=== PATIENT | female | born 1985 | race Caucasian/White ===

== ENCOUNTER 2019-11-27 23:32 | Emergency (ER) | payer MEDICAID ==
[~2019-11-27] VITALS: Ht 167.6 cm; Wt 68.0 kg
[2019-11-28] MEDS ORDERED: ACETAMINOPHEN WITH CODEINE 300/30MG TABLET PO ONE
[2019-11-28] MEDS ORDERED: SODIUM CHLORIDE 0.9% 1,000 ML IV ONE (00:35)
[2019-11-28] MEDS ORDERED: ETOMIDATE 2MG/ML 10ML VIAL IV ONE (00:45)
[2019-11-28] MEDS ORDERED: ONDANSETRON HCL 4MG/2ML INJ IV ONE ×2 (00:45→01:00)
[2019-11-28] MEDS ORDERED: PROPOFOL 200MG/20ML VIAL IV ONE (01:00)
[2019-11-28 02:12] VITALS: BP 135/75
== END 2019-11-28 02:30 | disposition home or self-care (01) ==
LOC: ER 23:32
DX: S53.125A Posterior dislocation of left ulnohumeral joint, initial encounter (principal); W07.XXXA Fall from chair, initial encounter; Y93.89 Activity, other specified; Y92.018 Other place in single-family (private) house as the place of occurrence of the external cause
CPT/HCPCS: 24600; 73070; 81025; 96374; 99152; 99285; J2405; J3490; J7030; J2704